=== PATIENT | male | born 1995 | race Two or more races ===

== ENCOUNTER 2025-08-21 14:59 | Emergency (ER) | payer MEDICAID, OTHER ==
[~2025-08-21] VITALS: Ht 167.6 cm; Wt 101.8 kg
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
--- NOTE | 2025-08-21 16:58 | DVH ---
EXAM: XY L ANKLE 2 VIEW XRAY INDICATION: fall TECHNIQUE:: 1 views of the left ankle COMPARISON: None FINDINGS/IMPRESSION: No radiographic evidence of an acute osseous abnormality. There is no acute fracture, osseous malalignment, or aggressive focal osseous lesion. Minimal lateral malleolar soft tissue swelling. No osseous lucency of the talar dome.
--- NOTE | 2025-08-21 17:08 | DVH ---
CHEST RADIOGRAPH INDICATION: sob TECHNIQUE: Single frontal view of the chest was obtained COMPARISON: None FINDINGS: Lines and Tubes: None Lungs: No focal consolidation. Pleura: No effusion. No pneumothorax. Cardiomediastinal contours: Unremarkable Bones: No acute osseous abnormality. IMPRESSION: 1. No acute cardiopulmonary disease.
--- NOTE | 2025-08-21 17:11 | DVH ---
EXAM: CT HEAD WITHOUT CONTRAST INDICATION: [facility] TECHNIQUE: CT of the head without intravenous contrast. Radiation Dose Information: CT Dose: CTDI volume is 57 mGy. Dose-length product is 916 mGy*cm The dose indicators for CT are the volume Computed Tomography (CT) Dose Index (CTDIvol) and the Dose Length Product (DLP), and are measured in units of mGy and mGy-cm, respectively. These indicators are not patient dose, but values generated from the CT scanner acquisition factors. The report includes radiation exposure data for exposures received during this examination. COMPARISON: None FINDINGS: There is no evidence of acute intracranial hemorrhage, extra-axial collection, mass effect, midline shift, herniation or hydrocephalus. The ventricles, sulci and cisterns are age appropriate. The grimes-white differentiation is intact. Patchy periventricular and subcortical white matter hypoattenuation is nonspecific but may be related to small vessel ischemic disease. The visualized paranasal sinuses and mastoid air cells are clear. The surrounding soft tissues and osseous structures are unremarkable. IMPRESSION: 1. No acute intracranial abnormality.
[2025-08-21] MEDS ORDERED: IBU600T PO (17:17)
[2025-08-21 18:02] VITALS: BP 140/74; PULSE 96; RESP 18; TEMP 99.3; O2SAT 96
== END 2025-08-21 18:05 | disposition home or self-care (01) ==
LOC: ER 14:59
DX: S09.8XXA Other specified injuries of head, initial encounter (principal); R07.89 Other chest pain; V89.2XXA Person injured in unspecified motor-vehicle accident, traffic, initial encounter; Y93.89 Activity, other specified; Y92.488 Other paved roadways as the place of occurrence of the external cause; Y99.8 Other external cause status
CPT/HCPCS: 70450; 71045; 73600